=== PATIENT | male | born 1975 | race Caucasian/White ===

== ENCOUNTER 2016-07-30 12:26 | Emergency (ER) | payer SELFPAY ==
[2016-07-30 13:23] LABS: #Basophils 0.1 thou/uL (0.0-0.2); #Eosinphils 0.2 thou/uL (0.0-0.7); #Lymphocytes 1.9 thou/uL (1.20-3.40); #Monocytes 0.6 thou/uL (0.11-0.59); #Neutrophils 5.1 thou/uL (1.40-6.50); %Basophils 1.1 % (0.0-1.0); Hematocrit 51.3 % (42.0-52.0); Mean Platelet Volume 7.9 fL (7.4-10.4); Red Blood Cell (RBC) Count 5.76 mill/uL (4.70-6.10); White Blood Cell (WBC) Count 7.8 thou/uL (4.8-10.8)
[2016-07-30 13:36] LABS: ALT (SGPT) 24 U/L (0-55); AST (SGOT) 15 U/L (5-34); Alkaline Phosphatase 67 U/L (40-150); Anion Gap 13 mmol/L (10-20); BUN (Urea Nitrogen) 15 mg/dL (8.9-20.6); Bilirubin, Total 0.3 mg/dL (0.2-1.2); Calc. Creatinine Clearance 0 mL/min (70-130); Carbon Dioxide 27 mmol/L (22-29); Chloride 105 mmol/L (98-107); Estimated GFR-MDRD 71; Globulin 3.4 g/dL (2.4-3.5); Protein, Total 7.9 g/dL (6.0-8.3)
[2016-07-30] MEDS ORDERED: Piperacillin/Tazobactam 3.375 GM VIAL ONE (13:38)
[2016-07-30] MEDS ORDERED: Ketorolac Tromethamine 30 MG/ML VIAL ONE (13:38)
[2016-07-30] MEDS ORDERED: Sodium Chloride 0.9% 100 ML ONE (13:39)
[2016-07-30 14:00] LABS: Bilirubin Negative (Negative); Blood, Urine Trace (Negative); Glucose, Urine (Dipstick) Negative (Negative); Ketone, Urine Negative (Negative); Nitrite Negative (Negative); Protein, Urine (Dipstick) Negative (Neg-Trace); Urobilinogen 0.2 mg/dL (0.2-1.0)
[2016-07-30 14:22] LABS: Bacteria/HPF None Seen HPF (None Seen); RBC/HPF None Seen HPF (0-3); Squamous Epithelial 0-3 HPF (0-3); WBC/HPF 0-3 HPF (0-3)
[2016-07-30] MEDS ORDERED: Fentanyl 100 MCG/2 ML VIAL ONE (14:33)
--- NOTE | 2016-07-30 19:39 | CT ---
CT ABDOMEN AND PELVIS WITH CONTRAST 07/30/16 Comparison is made with prior CT abdominal scans, though none of these included the pelvis. Axial sl ices were acquired after giving IV contrast. Oral contrast was withheld by request. There is some mild dependent atelectasis in the lower lobes of the lungs. The liver and spleen are n ormal in size. There are several ectopic splenic lobules near the splenic hilum. The gallbladder is very small and contracted, though there are no definite calcifications in it. The pancreas, adrenal glands, and abdominal aorta showed no acute changes. The kidneys showed no solid mass or hydronephro sis. A few small cysts are evident in each kidney, particularly the left. The bowel is nondistended. There is no sign of obstruction. On slices 66 through 71, one can see a l ittle bit of streaking in the left lower quadrant around the colon near its junction of the descendi ng colon with the sigmoid. There are some diverticula in this patient's colon, though they are not e xcessive. The left colon is collapsed, but even then there is some question of very slight thickenin g of its faulkner. The sigmoid colon faulkner are probably somewhat thick as well. The differential lies b etween diverticulitis, which seems most likely, plus or minus minimal colitis. CT of the pelvis showed no pelvic masses, fluid collections, or other acute change. The prostate is somewhat generous in size. Fat filled inguinal hernias are seen bilaterally. IMPRESSION: Slight pericolonic streaking near the junction of the descending colon with the sigmoid. Diverticuli tis is most likely. There may or may not be a little thickening of the left colon in general. POS: HOME
== END 2016-07-30 15:11 | disposition home or self-care (01) ==
LOC: BURERS 12:26
DX: K57.92 Diverticulitis of intestine, part unspecified, without perforation or abscess without bleeding (principal); I10 Essential (primary) hypertension; F41.9 Anxiety disorder, unspecified; F17.210 Nicotine dependence, cigarettes, uncomplicated
CPT/HCPCS: 74177; 80053; 81003; 81015; 85025; 96361; 96365; 96375; J1885; J2543; J3010; J7050

== ENCOUNTER 2017-04-06 19:41 | Emergency (ER) | payer OTHER, SELFPAY ==
[2017-04-06 19:58] LABS: #Basophils 0.1 thou/uL (0.0-0.2); #Eosinphils 0.2 thou/uL (0.0-0.7); #Lymphocytes 2.2 thou/uL (1.20-3.40); #Monocytes 0.5 thou/uL (0.11-0.59); %Basophils 1.8 % (0.0-1.0); %Lymphocytes 35.9 % (21.0-51.0); %Monocytes 8.9 % (0.0-10.0); %Neutrophils 49.5 % (42.0-75.0); Hemoglobin 16.1 g/dL (14.0-18.0); Mean Corpuscular HGB CONC 31.9 g/dL (32.0-36.0); Mean Corpuscular Hemoglobin 29.9 pg (27.0-31.0); Mean Corpuscular Volume 93.8 fl (80.0-94.0); Mean Platelet Volume 8.4 fL (7.4-10.4); Platelet Count 193 thou/uL (130-400); RBC Distribution Width 11.6 % (11.5-14.5); Red Blood Cell (RBC) Count 5.38 mill/uL (4.70-6.10); White Blood Cell (WBC) Count 6.1 thou/uL (4.8-10.8)
[2017-04-06 20:07] LABS: PTT 26.6 SEC (22.9-36.1); Prothrombin Time 12.9 SEC (12.0-14.7)
[2017-04-06 20:17] LABS: ALT (SGPT) 13 U/L (8-55); AST (SGOT) 12 U/L (5-34); Albumin 4.2 g/dL (3.5-5.0); Alkaline Phosphatase 52 U/L (40-150); Anion Gap 14 mmol/L (10-20); BUN (Urea Nitrogen) 15 mg/dL (8.9-20.6); Bilirubin, Total 0.4 mg/dL (0.2-1.2); CKMB 0.5 ng/mL (0-6.6); Calc. Creatinine Clearance 0 mL/min (70-130); Calcium 9.5 mg/dL (7.8-10.44); Carbon Dioxide 26 mmol/L (22-29); Chloride 106 mmol/L (98-107); Estimated GFR-MDRD Greater than 90; Glucose 113 mg/dL (70-105); Lipase 21 U/L (8-78); Potassium 3.9 mmol/L (3.5-5.1); Protein, Total 7.2 g/dL (6.0-8.3); Sodium 142 mmol/L (136-145); Troponin I Less than 0.010 ng/mL (< 0.028)
[2017-04-06 20:29] LABS: Bilirubin Negative (Negative); Blood, Urine Negative (Negative); Clarity Clear (Clear); Glucose, Urine (Dipstick) Negative (Negative); Leukocyte Negative (Negative); Nitrite Negative (Negative); Protein, Urine (Dipstick) Negative (Neg-Trace); Specific Gravity, Urine 1.025 (1.005-1.030); Urobilinogen 0.2 mg/dL (0.2-1.0)
[2017-04-06] MEDS ORDERED: Nitroglycerin 2% Ointment 1 INCH/1 GM Packet ONE (20:31)
[2017-04-06 20:40] LABS: Amphetamine Not Detected (NotDetected); Barbiturates Screen Not Detected (NotDetected); Benzodiazepine Screen Not Detected (NotDetected); Cocaine Metabolite Screen Not Detected (NotDetected); Medtox Control Line Valid? VALID (VALID); Methadone Not Detected (NotDetected); Methamphetamine Not Detected (NotDetected); Opiate Screen Not Detected (NotDetected); Oxycodone Screen Not Detected (NotDetected); Phencyclidine (PCP) Not Detected (NotDetected); THC/Cannabinoid Screen Not Detected (NotDetected); Tricyclic Screen Not Detected (NotDetected)
[2017-04-06] MEDS ORDERED: Lisinopril 5 MG TAB ONE (20:43)
[2017-04-06] MEDS ORDERED: Hydrochlorothiazide 25 MG TAB ONE (20:43)
--- NOTE | 2017-04-06 20:47 | RAD ---
PORTABLE CHEST: Date: 04-06-17 An AP portable film at 1951 is compared with a 08-10-16 study from [facility]. FINDINGS: The heart is normal in size. The lungs are clear. No infiltrate or effusion was seen. There were no findings to suggest chest pain. The mediastinum appears normal and the trachea is midline. IMPRESSION: No acute thoracic finding. POS: HOME
[2017-04-06 22:04] LABS: Troponin I Less than 0.010 ng/mL (< 0.028)
[2017-04-06 23:02] LABS: Troponin I Less than 0.010 ng/mL (< 0.028)
== END 2017-04-06 23:24 | disposition home or self-care (01) ==
LOC: BURERS 19:41
DX: R07.89 Other chest pain (principal); I10 Essential (primary) hypertension; A08.4 Viral intestinal infection, unspecified; E78.5 Hyperlipidemia, unspecified; Z91.14 Patient's other noncompliance with medication regimen; F41.9 Anxiety disorder, unspecified; F17.210 Nicotine dependence, cigarettes, uncomplicated; Z79.899 Other long term (current) drug therapy
CPT/HCPCS: 71010; 80053; 80306; 81003; 82553; 83690; 84484; 85025; 85610; 85730; 93005; 94760

== ENCOUNTER 2017-07-04 14:30 | Emergency (ER) | payer SELFPAY ==
[2017-07-04 14:59] LABS: #Lymphocytes 1.2 thou/uL (1.20-3.40); #Monocytes 0.4 thou/uL (0.11-0.59); #Neutrophils 1.7 thou/uL (1.40-6.50); %Basophils 0.8 % (0.0-1.0); %Eosinophils 1.4 % (0.0-10.0); %Lymphocytes 36.6 % (21.0-51.0); %Monocytes 11.4 % (0.0-10.0); %Neutrophils 49.8 % (42.0-75.0); Hemoglobin 17.9 g/dL (14.0-18.0); Mean Corpuscular HGB CONC 33.5 g/dL (32.0-36.0); Mean Corpuscular Hemoglobin 29.5 pg (27.0-31.0); Mean Corpuscular Volume 87.9 fl (80.0-94.0); Mean Platelet Volume 7.6 fL (7.4-10.4); Platelet Count 176 thou/uL (130-400); RBC Distribution Width 11.6 % (11.5-14.5); Red Blood Cell (RBC) Count 6.06 mill/uL (4.70-6.10); White Blood Cell (WBC) Count 3.3 thou/uL (4.8-10.8)
[2017-07-04] MEDS ORDERED: ALPRAZolam 0.5 MG TAB ONE (14:59)
[2017-07-04 15:12] LABS: ALT (SGPT) 20 U/L (8-55); AST (SGOT) 15 U/L (5-34); Albumin 4.5 g/dL (3.5-5.0); Alkaline Phosphatase 67 U/L (40-150); Anion Gap 18 mmol/L (10-20); BUN (Urea Nitrogen) 14 mg/dL (8.9-20.6); Bilirubin, Total 0.5 mg/dL (0.2-1.2); Calc. Creatinine Clearance 0 mL/min (70-130); Calcium 9.5 mg/dL (7.8-10.44); Carbon Dioxide 25 mmol/L (22-29); Chloride 101 mmol/L (98-107); Estimated GFR-MDRD 84; Globulin 3.3 g/dL (2.4-3.5); Glucose 95 mg/dL (70-105); Potassium 3.5 mmol/L (3.5-5.1); Protein, Total 7.8 g/dL (6.0-8.3); Sodium 140 mmol/L (136-145)
[2017-07-04 15:13] LABS: Acetaminophen Less than 6.0 mcg/mL (10.0-30.0); Alcohol Less than 10 mg/dL (Less than 10); Salicylate Less than 8.0 mg/dL (15.0-30.0)
[2017-07-04 15:26] LABS: Amphetamine Not Detected (NotDetected); Barbiturates Screen Not Detected (NotDetected); Benzodiazepine Screen Not Detected (NotDetected); Cocaine Metabolite Screen Not Detected (NotDetected); Medtox Control Line Valid? VALID (VALID); Methadone Not Detected (NotDetected); Methamphetamine Not Detected (NotDetected); Opiate Screen Not Detected (NotDetected); Oxycodone Screen Not Detected (NotDetected); Phencyclidine (PCP) Not Detected (NotDetected); THC/Cannabinoid Screen Not Detected (NotDetected); Tricyclic Screen Not Detected (NotDetected)
== END 2017-07-04 17:34 | disposition home or self-care (01) ==
LOC: BURERS 14:30
DX: F41.9 Anxiety disorder, unspecified (principal); E78.5 Hyperlipidemia, unspecified; I10 Essential (primary) hypertension; F17.210 Nicotine dependence, cigarettes, uncomplicated; Z79.899 Other long term (current) drug therapy
CPT/HCPCS: 80053; 80306; 80307; 85025; 93005; 96360

== ENCOUNTER 2018-02-01 20:08 | Emergency (ER) | payer SELFPAY ==
[2018-02-01] MEDS ORDERED: Fluorescein Opthalmic Strip ONE (20:20)
[2018-02-01] MEDS ORDERED: Gentamicin Ophth Soln 0.3% 5 ml Bottle ONE (20:57)
--- NOTE | 2018-02-01 22:50 | RAD ---
SKULL TWO VIEWS: 02/01/2018 TECHNIQUE: AP and lateral views were provided. FINDINGS: There is no evidence of opaque orbital foreign body. No current fractures are seen. There has been ORIF of old facial fractures, and there probably was a nasal fracture in the past as well. IMPRESSION: No foreign body seen. POS: HOME
== END 2018-02-01 21:05 | disposition home or self-care (01) ==
LOC: BURERS 20:08
DX: S05.01XA Injury of conjunctiva and corneal abrasion without foreign body, right eye, initial encounter (principal); E78.5 Hyperlipidemia, unspecified; I10 Essential (primary) hypertension; F41.9 Anxiety disorder, unspecified; F17.210 Nicotine dependence, cigarettes, uncomplicated; W22.8XXA Striking against or struck by other objects, initial encounter
CPT/HCPCS: 70250

== ENCOUNTER 2018-09-01 17:19 | Emergency (ER) | payer SELFPAY ==
[2018-09-01] MEDS ORDERED: Adacel (T-DAP) 0.5 ML SYRINGE ONE (17:44)
--- NOTE | 2018-09-01 20:22 | RAD ---
RIGHT LEG TWO VIEW: 09/01/18 HISTORY: Pain. COMPARISON: None. FINDINGS: No fracture. No malalignment. 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 No acute fracture or malalignment of the tibia or fibula. IMPRESSION: No acute fracture to the tibia or fibula. POS: [facility]
== END 2018-09-01 17:45 | disposition home or self-care (01) ==
LOC: BURERS 17:19
DX: S80.11XA Contusion of right lower leg, initial encounter (principal); F17.210 Nicotine dependence, cigarettes, uncomplicated; F41.9 Anxiety disorder, unspecified; I10 Essential (primary) hypertension; E78.5 Hyperlipidemia, unspecified; W21.89XA Striking against or struck by other sports equipment, initial encounter; Y93.53 Activity, golf; Y92.39 Other specified sports and athletic area as the place of occurrence of the external cause; Y99.8 Other external cause status
CPT/HCPCS: 90471; 90715

== ENCOUNTER 2022-03-08 11:37 | Emergency (ER) | payer SELFPAY ==
[2022-03-08] MEDS ORDERED: Ciprofloxacin 500 MG TAB ONE (11:55)
[2022-03-08] MEDS ORDERED: Boostrix 0.5 ML (Tdap) VIAL (>/=7 yrs of age) ONE (11:55)
[2022-03-08] MEDS ORDERED: Cephalexin 250 MG CAP ONE (11:55)
== END 2022-03-08 12:03 | disposition home or self-care (01) ==
LOC: BURERS 11:37
DX: L03.116 Cellulitis of left lower limb (principal); I10 Essential (primary) hypertension; E78.5 Hyperlipidemia, unspecified; F17.210 Nicotine dependence, cigarettes, uncomplicated
CPT/HCPCS: 90471; 90715